=== PATIENT | male | born 1945 | race Hispanic/Latino ===

== ENCOUNTER 2019-12-08 08:45 | Inpatient (IN) | payer MEDICARE, OTHER ==
[2020-01-12 09:54] VITALS: BMI 25.5
[2020-01-12 12:24] LABS: #Eosinphils 0.2 thou/uL (0.0-0.7); #Lymphocytes 2.8 thou/uL (1.20-3.40); #Monocytes 0.8 thou/uL (0.11-0.59); #Neutrophils 5.5 thou/uL (1.40-6.50); %Basophils 0.3 % (0.0-1.0); %Eosinophils 1.8 % (0.0-10.0); %Lymphocytes 29.8 % (21.0-51.0); %Monocytes 8.6 % (0.0-10.0); %Neutrophils 59.6 % (42.0-75.0); Hemoglobin 16.2 g/dL (14.0-18.0); Mean Corpuscular HGB CONC 31.4 g/dL (32.0-36.0); Mean Corpuscular Hemoglobin 27.8 pg (27.0-31.0); Mean Corpuscular Volume 88.6 fL (78.0-98.0); Mean Platelet Volume 10.3 fL (7.4-10.4); Platelet Count 120 thou/uL (130-400); RBC Distribution Width 13.4 % (11.5-14.5); Red Blood Cell (RBC) Count 5.81 mill/uL (4.70-6.10); White Blood Cell (WBC) Count 9.3 thou/uL (4.8-10.8)
[2020-01-12 12:28] LABS: Prothrombin Time 13.1 sec (12.0-14.7)
[2020-01-12 12:45] LABS: Anion Gap 18 mmol/L (10-20); BUN (Urea Nitrogen) 19 mg/dL (8.4-25.7); Calc. Creatinine Clearance 0 mL/min (70-130); Calcium 9.7 mg/dL (7.8-10.44); Carbon Dioxide 22 mmol/L (23-31); Chloride 107 mmol/L (98-107); Estimated GFR-MDRD 57; Glucose 115 mg/dL (83-110); Potassium 3.8 mmol/L (3.5-5.1); Sodium 143 mmol/L (136-145)
[2020-01-12 18:13] LABS: Bacteria/HPF None Seen HPF (None Seen); Bilirubin Negative (Negative); Blood, Urine Negative (Negative); Clarity Clear (Clear); Glucose, Urine (Dipstick) Greater than 1000 mg/dL (Negative); Leukocyte Negative Leu/uL (Negative); Nitrite Negative (Negative); Protein, Urine (Dipstick) 30 mg/dL (Neg-Trace); Squamous Epithelial None Seen HPF (0-3); Urobilinogen Normal mg/dL (Less than 2); WBC/HPF 0-3 HPF (0-3)
[2020-01-12 18:35] LABS: SARS-CoV-2 MS2 Positive; SARS-CoV-2 N Gene Negative; SARS-CoV-2 S Gene Negative; SARS-CoV-2 orf1ab Negative
--- NOTE | 2020-01-16 07:00 | HP ---
HISTORY OF PRESENT ILLNESS: The patient is a 74-year-old male with a 1-year history of progressive pain in the left hip without injury. He describes groin pain radiating in his thigh and towards his knee which is worse with activities. It is now interfering with day-to-day activities including walking, getting dressed, and sleeping. Only partially relieved with use of Meloxican and lifestyle adjustments. PAST MEDICAL HISTORY: The patient has history of hypertension and diabetes. He underwent renal transplant several years ago in [place], [place] with good results. CURRENT MEDICATIONS: Include, 1. Tacrolimus. 2. Low-dose aspirin. 3. Prednisolone 5 mg daily. 4. Glimepiride. 5. Lisinopril. 6. Jardiance. 7. Meloxicam. 8. Pravastatin. 9. Mycophenolate. ALLERGIES: HE HAS NO KNOWN ALLERGIES. FAMILY HISTORY: Otherwise unremarkable. SOCIAL HISTORY: Otherwise unremarkable. REVIEW OF SYSTEMS: Otherwise unremarkable. PHYSICAL EXAMINATION: GENERAL: Reveals a healthy-appearing male. HEENT: Unremarkable. NECK: Supple. CHEST: Clear. HEART: Regular rate and rhythm. ABDOMEN: Soft and nontender. RECTAL: Deferred. GENITAL: Deferred. EXTREMITIES: Pertinent findings in the left hip. Leg lengths are equal. There is tenderness in the anterior hip. There is decreased range of motion and groin pain with internal rotation of the hip. There is a left antalgic gait. Neurovascular exam is intact. Pulses are trace to 1+. There is good capillary refill. DIAGNOSTIC STUDIES: X-rays of the left hip performed at the [facility] on 10/31/2019 show severe DJD with no joint space remaining. There are surgical clips throughout the left pelvis apparently from previous renal transplant. IMPRESSION: 1. Degenerative arthritis, left hip. 2. Status post renal transplant. 3. History of hypertension. 4. History of diabetes. PLAN: Left total hip replacement. The nature of surgery, length of recovery, and potential complications such as infection, loss of motion, incomplete relief, neurovascular injury, thromboembolic phenomena, leg-length discrepancy, possible transfusion, and need for revision have been discussed in detail. Job ID: [id number]
[2020-01-16] MEDS ORDERED: Sodium Chloride 0.9% 100 ML ONE (07:45)
[2020-01-16] MEDS ORDERED: Tranexamic Acid 1,000 MG/10 ML VIAL ONE ×2 (07:45→11:55)
[2020-01-16] MEDS ORDERED: Fentanyl 100 MCG/2 ML VIAL ONE ×4 (08:14→12:13)
[2020-01-16] MEDS ORDERED: Midazolam HCl 2 mg/2 ml Vial ONE ×2 (08:14→08:16)
[2020-01-16] MEDS ORDERED: Acetaminophen 325 MG TAB PO PRN ×2 (08:44→14:56)
[2020-01-16] MEDS ORDERED: Promethazine HCl 25 MG/ML VIAL IM PRN ×2 (08:45→12:06)
[2020-01-16] MEDS ORDERED: Hydrocerin (Eucerin) Cream 120 gm Jar TOP PRN (08:45)
[2020-01-16] MEDS ORDERED: Naloxone HCl 0.4 mg/ml Vial IV PRN (08:45)
[2020-01-16] MEDS ORDERED: Naloxone HCl 0.4 mg/ml Vial IVP PRN (08:45)
[2020-01-16] MEDS ORDERED: Ondansetron PF 4 MG/2 ML Vial IVP PRN (08:45)
[2020-01-16] MEDS ORDERED: diphenhydrAMINE 50 MG/ML VIAL IVP PRN (08:45)
[2020-01-16] MEDS ORDERED: diphenhydrAMINE 50 MG/ML VIAL IM PRN (08:45)
[2020-01-16] MEDS ORDERED: Promethazine HCl 25 MG SUPP PR PRN (08:45)
[2020-01-16] MEDS ORDERED: Zolpidem Tartrate 5 MG TAB PO PRN ×2 (08:45→14:56)
[2020-01-16] MEDS ORDERED: traMADol HCl 50 MG TAB PO PRN ×2 (08:45)
[2020-01-16] MEDS ORDERED: diphenhydrAMINE 25 MG CAP PO PRN ×2 (08:45→14:56)
[2020-01-16] MEDS ORDERED: HYDROcodone/Acetaminophen 5/325 mg Tablet PO PRN ×2 (08:45)
[2020-01-16] MEDS ORDERED: Bupivacaine 0.25% 10 ML VIAL EPIDURAL PRN (08:45)
[2020-01-16] MEDS ORDERED: Bupivacaine/Epinephrine 0.25% 30 ML VIAL ONE (09:53)
[2020-01-16] MEDS ORDERED: Vancomycin 1.5 GRAM/300 ML BAG 1.5 GM/300 ML BAG ONE (09:58)
[2020-01-16] MEDS ORDERED: Glycopyrrolate 0.2 MG/ML 5 ML SYRINGE ONE (10:44)
[2020-01-16] MEDS ORDERED: Rocuronium Bromide 10 MG/ML (10ML VIAL) ONE (10:44)
[2020-01-16] MEDS ORDERED: PHENYLEPHRINE-NS 100 MCG/ML 10 ML SYRINGE ONE (10:44)
[2020-01-16] MEDS ORDERED: EPHEDRINE 25 MG/5 ML SYRINGE ONE (10:44)
[2020-01-16] MEDS ORDERED: Lidocaine 1% PF 5 ML VIAL ONE (10:44)
[2020-01-16] MEDS ORDERED: PROPOFOL 200 MG/20 ML VIAL ONE (10:44)
[2020-01-16] MEDS ORDERED: Lidocaine 1.5% w/Epi 1:200K 30 ML VIAL (Epid Use) ONE (10:44)
[2020-01-16] MEDS ORDERED: Tranexamic Acid 1,000 MG in Sodium Chloride 0.9% 100 ML IVPB SCH ×2 (12:00→14:56)
[2020-01-16] MEDS ORDERED: Promethazine HCl 25 MG/ML VIAL SLOW IVP PRN ×2 (12:06→14:56)
[2020-01-16] MEDS ORDERED: Ondansetron HCl/PF 4 MG/2 ML Vial IVP PRN (12:06)
--- NOTE | 2020-01-16 12:58 | RAD ---
Left hip 2 views HISTORY: Arthritis. Replacement. FINDINGS: Metallic hip prosthesis in place. Alignment is anatomic. No perihardware lucency. Soft tissue gas from recent surgery. IMPRESSION : Left hip prosthesis is in good radiographic position.
[2020-01-16] MEDS ORDERED: Ondansetron PF 4 MG/2 ML Vial ONE (13:28)
[2020-01-16] MEDS ORDERED: Fentanyl 100 MCG/2 ML VIAL SLOW IVP PRN ×4 (14:56→17:15)
[2020-01-16] MEDS ORDERED: HYDROcodone/Acetaminophen 10/325 mg Tablet PO PRN ×3 (14:56→17:12)
[2020-01-16] MEDS ORDERED: Empagliflozin 10 MG TAB PO SCH (17:00)
[2020-01-16] MEDS ORDERED: predniSONE 5 MG TAB PO SCH (17:15)
[2020-01-16] MEDS: CEFAZOLIN 2 GM in Premix Bag 1 BAG IVPB SCH (17:16)
[2020-01-16] MEDS ORDERED: Dextrose 50% Abboject 50 ML SYRINGE SLOW IVP PRN (17:21)
[2020-01-16] MEDS ORDERED: Insulin Regular 300 UNITS/3 ML VIAL SC PRN (17:21)
[2020-01-16] MEDS ORDERED: Dextrose 5% in Water 1,000 ML IV PRN (17:21)
--- NOTE | 2020-01-16 17:23 | PDOC.HOSPP ---
- Subjective Encounter Date: 01/16/20 Encounter Time: 17:22 Subjective: Patient seen and examined for med mngt. No CP/SOB. Pain controlled. No new complaints. - Objective Vital Signs & Weight: Vital Signs (12 hours) Temp Pulse Resp BP Pulse Ox 01/16/20 13:45 97.5 F L 75 16 153/77 H 95 Weight Weight 183 lb Result Diagrams: 01/17/20 05:48 01/12/20 11:13 Additional Labs: Accuchecks 01/16/20 01/16/20 15:11 08:22 POC Glucose 173 H 146 H EKG Reviewed by me: Yes (SR) Hospitalist ROS - Review of Systems Respiratory: denies: cough, dry, shortness of breath, hemoptysis, SOB with excertion, pleuritic pain, sputum, wheezing, other Cardiovascular: denies: chest pain, palpitations, orthopnea, paroxysmal noc. dyspnea, edema, light headedness, other - Medication Medications: Active Medications Generic Name Dose Route Start Last Admin Trade Name Freq PRN Reason Stop Dose Admin Cefazolin Sodium/Dextrose 2 gm 50 mls @ 100 mls/hr 01/16/20 17:00 01/16/20 17 :16 / Device IVPB 01/17/20 01:29 50 mls 0100,[id number],1700 JUAN RAMON Administration - Exam General Appearance: NAD Heart: RRR, no rubs Respiratory: no wheezes, no ronchi Gastrointestinal: non-tender, non-distended, normal bowel sounds Extremities: no cyanosis, no clubbing Neurological: no new deficit Hosp A/P - Plan DVT proph w/SCDs HTN DM2 Glaucoma h/o Renal transplant 2004 CKD 3 PLAN: Cont Lisinopril Cont Jardiance/Glimepiride Cont Prednisone/Mycophenolate Add sliding scale Cont other meds as above
--- NOTE | 2020-01-16 19:17 | OP ---
DATE OF PROCEDURE: 01/16/2020 SET UP OPERATOR TOOL: Jesus Warner PA-C ANESTHESIA: General plus epidural. PREOPERATIVE DIAGNOSIS: Degenerative arthritis, left hip. POSTOPERATIVE DIAGNOSIS: Degenerative arthritis, left hip. PROCEDURE PERFORMED: Left total hip replacement with uncemented [place] Tritanium outer shell acetabular component, 56 mm with X3 polyethylene insert, and uncemented [place] Accolade II femoral stem, size 4 with 132-degree neck angle and 36-mm standard neck length, delta ceramic femoral head. DESCRIPTION OF PROCEDURE: After satisfactory anesthesia was induced in supine position, sequential compression device was placed on the operative leg throughout the procedure. The patient was placed in lateral decubitus position. This position was held with hip positioning device. The patient was then prepped in routine sterile fashion. The hip was approached through a lateral curvilinear incisions over the greater trochanter, carried down through the subcutaneous tissues and bleeding points were controlled with the Bovie cautery. IT band and gluteal fascia were split in line with the skin incision. A direct lateral approach to the hip joint was accomplished by dividing the anterior third of the gluteus medius and minimus tendons with the Bovie cautery and reflecting this as a single flap anteriorly and medially along with the vastus lateralis. Anterior capsulectomy was performed. The hip was dislocated anteriorly. There was marked degenerative arthritis of the hip with the large areas of exposed bone. Femoral neck was osteotomized with an oscillating saw using a trial prosthesis as a guide. The acetabulum was exposed and cleaned of all soft tissue debris and rim osteophytes. The acetabulum was reamed down to bleeding subchondral bone to a total of 55 mm. It was felt that the 56-mm Tritanium outer shell could be placed in a press-fit fashion. The permanent outer shell was hammered in position. There was good fit and stability of the component and the permanent X3 polyethylene liner was snapped into place. The proximal femur was then exposed and opened with a box osteotome and then rasped in sequence to accept a #4 Accolade II femoral rasp. The 132-degree neck angle trunnion was placed on the rasp and trial reduction with a standard neck length and 36-mm head gave appropriate size, fit, and stability. The hip was again dislocated. The trial components were removed. The permanent #4 Accolade II femoral stem was then hammered in position. There was good fit and stability of the components. The permanent 36-mm standard neck length delta ceramic head was then placed on the trunnion and the hip again reduced and found to be stable. The wound was thoroughly irrigated. The abductors were repaired with interrupted #2 Vicryl. IT band and gluteal fascia were closed with interrupted #2 Vicryl and a running #2 Quill. Subcutaneous tissues were closed with running 0 Quill suture and the skin closed with a running subcuticular 3-0 Monoderm and Surgicel skin adhesive. Sterile dressing was applied. The patient turned to supine position and a pillow placed between his legs. Sequential compression devices were applied to the operated leg and he was awakened and taken to the recovery room in stable condition. There were no apparent intraoperative complications. ESTIMATED BLOOD LOSS: 200 mL. Job ID: [id number]
[2020-01-16] MEDS: Sodium Chloride 0.9% 1,000 ML IV SCH (19:32)
[2020-01-16] MEDS ORDERED: Atorvastatin Calcium 20 MG TAB ONE (20:23)
[2020-01-16] MEDS ORDERED: Vancomycin 1.5 GRAM/300 ML BAG 1.5 GM in Premix Bag 1 BAG IVPB SCH (21:00)
[2020-01-16] MEDS ORDERED: Lisinopril 10 MG TAB PO SCH (21:00)
[2020-01-16] MEDS: Aspirin 81 mg Enteric Coated Tablet PO SCH (21:44)
[2020-01-16] MEDS: Mycophenolate 250 MG CAP PO SCH (21:44)
[2020-01-16] MEDS: TACROLIMUS 0.5 MG/ML PO SCH (21:45)
[2020-01-16] MEDS: PRAVASTATIN 80 MG PO SCH (21:45)
[2020-01-17] MEDS: CEFAZOLIN 2 GM in Premix Bag 1 BAG IVPB SCH (01:24)
[2020-01-17] MEDS: Sodium Chloride 0.9% 1,000 ML IV SCH ×3 (01:27→20:15)
[2020-01-17] MEDS: HYDROcodone/Acetaminophen 10/325 mg Tablet PO PRN ×2 (04:22→09:22)
[2020-01-17] MEDS: fentaNYL Citrate/PF 500 MCG, Bupivacaine 10 ML in Sodium Chloride 0.9% 80 ML EPIDURAL SCH ×2 (04:22→20:00)
[2020-01-17 06:11] LABS: Hemoglobin 13.5 g/dL (14.0-18.0); Mean Corpuscular HGB CONC 31.6 g/dL (32.0-36.0); Mean Corpuscular Volume 88.6 fL (78.0-98.0); Mean Platelet Volume 10.2 fL (7.4-10.4); Platelet Count 96 thou/uL (130-400); RBC Distribution Width 13.1 % (11.5-14.5); Red Blood Cell (RBC) Count 4.82 mill/uL (4.70-6.10); White Blood Cell (WBC) Count 10.5 thou/uL (4.8-10.8)
[2020-01-17] MEDS: traMADol HCl 50 MG TAB PO PRN (06:44)
[2020-01-17] MEDS: Ondansetron PF 4 MG/2 ML Vial IVP PRN (06:44)
[2020-01-17] MEDS: Glimepiride 4 MG TAB PO SCH ×2 (07:05→16:30)
[2020-01-17] MEDS: Multivitamin W/ Minerals 1 TAB PO SCH (09:21)
[2020-01-17] MEDS: Aspirin 81 mg Enteric Coated Tablet PO SCH ×2 (09:21→20:20)
[2020-01-17] MEDS: Mycophenolate 250 MG CAP PO SCH ×2 (09:21→20:20)
[2020-01-17] MEDS: Tacrolimus 0.5 MG CAP PO SCH (09:21)
[2020-01-17] MEDS: predniSONE 5 MG TAB PO SCH (09:22)
[2020-01-17] MEDS: Empagliflozin 10 MG TAB PO SCH (09:22)
[2020-01-17] MEDS: Senokot S 8.6-50 MG TAB PO SCH ×2 (09:22→20:21)
[2020-01-17] MEDS: Ferrous Gluconate 324 MG TAB PO SCH ×2 (09:26→20:21)
[2020-01-17] MEDS: Insulin Regular 300 UNITS/3 ML VIAL SC PRN ×2 (12:09→16:30)
--- NOTE | 2020-01-17 15:35 | PDOC.HOSPP ---
- Subjective Encounter Date: 01/17/20 Encounter Time: 14:00 Subjective: Patient seen and examined for med mngt. Intermittent nausea. No other complaints. No overnight events - Objective Vital Signs & Weight: Vital Signs (12 hours) Temp Pulse Resp BP Pulse Ox 01/17/20 11:00 98.3 F 88 22 H 108/65 94 L 01/17/20 09:22 94 L 01/17/20 07:36 98.6 F 89 16 126/69 94 L 01/17/20 03:51 99.2 F 97 16 134/70 95 Weight Admit Weight 183 lb Weight 183 lb I&O: 01/16/20 01/17/20 01/18/20 06:59 06:59 06:59 Intake Total 1820 Output Total 1600 Balance 220 Result Diagrams: 01/17/20 05:48 01/12/20 11:13 Additional Labs: Accuchecks 01/17/20 01/17/20 01/16/20 10:33 05:25 20:16 POC Glucose 165 H 117 H 124 H 01/16/20 15:11 POC Glucose 173 H Hospitalist ROS - Review of Systems Respiratory: denies: cough, dry, shortness of breath, hemoptysis, SOB with excertion, pleuritic pain, sputum, wheezing, other Cardiovascular: denies: chest pain, palpitations, orthopnea, paroxysmal noc. dyspnea, edema, light headedness, other - Medication Medications: Active Medications Generic Name Dose Route Start Last Admin Trade Name Freq PRN Reason Stop Dose Admin Hydrocodone Bitart/Acetaminophen 2 tab 01/16/20 17:12 01/17/20 09:22 [place]n 10/325 PO 2 tab Q4H PRN Administration Severe Pain (7-10) Aspirin 81 mg 01/16/20 21:00 01/17/20 09:21 Ecotrin PO 81 mg BID JUAN RAMON Administration Ferrous Gluconate 324 mg 01/17/20 09:00 01/17/20 09:26 Fergon PO Not Given BID JUAN RAMON Glimepiride 4 mg 01/17/20 07:30 01/17/20 07:05 Amaryl PO 4 mg BID-AC JUAN RAMON Administration Fentanyl Citrate 500 mcg/ 100 mls @ 0 mls/hr 01/16/20 08:45 01/17/20 04:22 Bupivacaine HCl 10 ml/ Sodium EPIDURAL 100 mls Chloride INF JUAN RAMON Administration As Directed Sodium Chloride 1,000 mls @ 100 mls/hr 01/16/20 14:56 01/17/20 10:19 Normal Saline 0.9% IV Not Given .Q10H JUAN RAMON Insulin Human Regular 0 units 01/16/20 17:21 01/17/20 12:09 Humulin R SC 2 unit .MILD SLIDING SCALE PRN Administration Mild Correctional Scale Iron/Minerals/Multivitamins 1 tab 01/17/20 09:00 01/17/20 09:21 Theragran M PO 1 tab DAILY JUAN RAMON Administration Lisinopril 10 mg 01/16/20 21:00 01/16/20 21:44 Zestril PO 10 mg HS JUAN RAMON Administration Miscellaneous Medication 10 mg 01/17/20 09:00 01/17/20 09:22 Jardiance PO 10 mg DAILY JUAN RAMON Administration Mycophenolate Mofetil 500 mg 01/16/20 21:00 01/17/20 09:21 Cellcept PO 500 mg BID JUAN RAMON Administration Ondansetron HCl 4 mg 01/16/20 14:56 01/17/20 06:44 Zofran IVP 4 mg Q6H PRN Administration Nausea/Vomiting Pravastatin 80 Mg 1 each 01/16/20 21:00 01/16/20 21:45 PO 1 each HS JUAN RAMON Administration Tacrolimus 0.5 Mg/Ml 0 each 01/16/20 21:00 01/16/20 21:45 Oral Suspension PO 1 each HS JUAN RAMON Administration Prednisone 5 mg 01/17/20 09:00 01/17/20 09:22 Prednisone PO 5 mg DAILY JUAN RAMON Administration Promethazine HCl 12.5 mg 01/16/20 08:45 01/17/20 10:43 Phenergan IM 12.5 mg Q4H PRN Administration Nausea Senna/Docusate Sodium 2 tab 01/17/20 09:00 01/17/20 09:22 Senokot S PO 2 tab BID JUAN RAMON Administration Sodium Chloride 10 ml 01/16/20 09:00 01/17/20 09:26 Flush - Normal Saline IVF 10 ml Q12HR JUAN RAMON Administration Tacrolimus 0.5 mg 01/17/20 09:00 01/17/20 09:21 Prograf PO 0.5 mg QAM JUAN RAMON Administration Tramadol HCl 100 mg 01/16/20 14:56 01/17/20 06:44 Ultram PO 100 mg Q6H PRN Administration Moderate Pain (4-6) - Exam General Appearance: NAD Neck: supple, no JVD Heart: RRR, no gallops Respiratory: CTAB, no rales Gastrointestinal: soft, non-distended Extremities: no cyanosis, no clubbing Neurological: no new deficit Hosp A/P - Plan DVT proph w/SCDs HTN DM2 Glaucoma h/o Renal transplant 2004 CKD 3 Thrombocytopenia PLAN: Cont Lisinopril - hold for low BP Cont Glimepiride Cont Prednisone/Mycophenolate Cont sliding scale Monitor Platelets AM labs Cont other meds as above Orthostatic vitals in AM
[2020-01-17] MEDS ORDERED: Atorvastatin Calcium 20 MG TAB ONE (19:49)
[2020-01-17] MEDS: Meclizine HCl 25 MG TAB PO PRN (20:20)
[2020-01-17] MEDS: Lisinopril 10 MG TAB PO SCH (20:23)
[2020-01-17] MEDS: TACROLIMUS 0.5 MG/ML PO SCH (20:23)
[2020-01-17] MEDS: PRAVASTATIN 80 MG PO SCH (20:24)
[2020-01-18] MEDS: HYDROcodone/Acetaminophen 10/325 mg Tablet PO PRN ×3 (04:14→21:12)
[2020-01-18 06:01] LABS: Hemoglobin 13.7 g/dL (14.0-18.0); Mean Corpuscular HGB CONC 31.9 g/dL (32.0-36.0); Mean Corpuscular Hemoglobin 28.5 pg (27.0-31.0); Mean Corpuscular Volume 89.4 fL (78.0-98.0); Mean Platelet Volume 10.2 fL (7.4-10.4); Platelet Count 100 thou/uL (130-400); RBC Distribution Width 13.2 % (11.5-14.5); Red Blood Cell (RBC) Count 4.81 mill/uL (4.70-6.10); White Blood Cell (WBC) Count 13.2 thou/uL (4.8-10.8)
[2020-01-18 06:02] LABS: Band 11 % (5-11); Eosinophils 1 % (0-10); Lymphocytes 12 % (21-51); MDiff Complete? YES; Monocytes 10 % (0-10); Neutrophil 66 % (42-75); Platelet Morphology Comment Appears Decreased
[2020-01-18 06:10] LABS: Anion Gap 17 mmol/L (10-20); BUN (Urea Nitrogen) 24 mg/dL (8.4-25.7); Calc. Creatinine Clearance 57 mL/min (70-130); Calcium 8.8 mg/dL (7.8-10.44); Carbon Dioxide 19 mmol/L (23-31); Chloride 103 mmol/L (98-107); Estimated GFR-MDRD 53; Glucose 121 mg/dL (83-110); Magnesium 2.2 mg/dL (1.6-2.6); Potassium 4.2 mmol/L (3.5-5.1); Sodium 135 mmol/L (136-145)
[2020-01-18] MEDS: Sodium Chloride 0.9% 1,000 ML IV SCH ×2 (06:45→18:14)
[2020-01-18] MEDS: Glimepiride 4 MG TAB PO SCH ×2 (07:21→16:59)
[2020-01-18] MEDS: Tacrolimus 0.5 MG CAP PO SCH (09:15)
[2020-01-18] MEDS: Empagliflozin 10 MG TAB PO SCH (09:16)
[2020-01-18] MEDS: Ondansetron PF 4 MG/2 ML Vial IVP PRN (09:18)
[2020-01-18] MEDS: Senokot S 8.6-50 MG TAB PO SCH ×2 (09:20→21:11)
[2020-01-18] MEDS: predniSONE 5 MG TAB PO SCH (09:20)
[2020-01-18] MEDS: Mycophenolate 250 MG CAP PO SCH ×2 (09:20→21:11)
[2020-01-18] MEDS: Ferrous Gluconate 324 MG TAB PO SCH ×2 (09:21→21:11)
[2020-01-18] MEDS: Aspirin 81 mg Enteric Coated Tablet PO SCH ×2 (09:21→21:10)
[2020-01-18] MEDS: Multivitamin W/ Minerals 1 TAB PO SCH ×2 (09:21→09:26)
[2020-01-18] MEDS: Meclizine HCl 25 MG TAB PO PRN (10:54)
[2020-01-18] MEDS: traMADol HCl 50 MG TAB PO PRN (13:52)
--- NOTE | 2020-01-18 16:24 | PRG ---
DATE OF SERVICE: 01/18/2020 SUBJECTIVE: Parish is a 74-year-old male, who is postop day 2 from left total hip arthroplasty. He has failed to meet milestones for ambulation, independence, getting back and forth to the bathroom. Therefore, he is not stable for discharge today. OBJECTIVE: VITAL SIGNS: Temperature 97.9, pulse 97, respiratory rate 16, and blood pressure 97/62. GENERAL: He is alert and oriented to person, place, time, and situation. Responsive and appropriate with examiner. Converses easily. EXTREMITIES: Visual inspection of left hip demonstrates him to have a clean dry dressing. No strike-through. No malrotation or shortening and he is neurovascularly intact in the left lower extremity. LABORATORY DATA: Hemoglobin and hematocrit of 13 and 43. IMPRESSION: This is a 74-year-old male postop day 2 left total hip arthroplasty, but with failure to reach independence as far as in and out of bed, back and forth to the bathroom. PLAN: Continue current therapy. I will go ahead and turn in a consult for skilled versus inpatient rehabilitation placement. Job ID: [id number]
[2020-01-18] MEDS ORDERED: Atorvastatin Calcium 20 MG TAB ONE (19:48)
[2020-01-18] MEDS: Lisinopril 10 MG TAB PO SCH (21:11)
[2020-01-18] MEDS: PRAVASTATIN 80 MG PO SCH (21:13)
[2020-01-18] MEDS: TACROLIMUS 0.5 MG/ML PO SCH (21:13)
[2020-01-19] MEDS: Sodium Chloride 0.9% 1,000 ML IV SCH ×3 (02:20→23:44)
[2020-01-19] MEDS: HYDROcodone/Acetaminophen 10/325 mg Tablet PO PRN ×3 (06:25→15:53)
[2020-01-19] MEDS: Glimepiride 4 MG TAB PO SCH ×2 (06:25→15:56)
--- NOTE | 2020-01-19 08:01 | PDOC.HOSPP ---
- Subjective Encounter Date: 01/18/20 Encounter Time: 15:00 Subjective: Patient seen and examined for med mngt. No CP. No new complaints. No overnight events - Objective Vital Signs & Weight: Vital Signs (12 hours) Temp Pulse Resp BP BP Pulse Ox 01/19/20 03:21 97.7 F 81 14 136/66 95 01/18/20 21:11 148/71 H Weight Admit Weight 183 lb Weight 183 lb I&O: 01/18/20 01/19/20 01/20/20 06:59 06:59 06:59 Intake Total 1830 490 Output Total 1500 1700 Balance 330 -1210 Result Diagrams: 01/18/20 05:21 01/18/20 05:21 Additional Labs: Accuchecks 01/19/20 01/18/20 01/18/20 06:26 21:21 15:23 POC Glucose 133 H 160 H 167 H 01/18/20 11:38 POC Glucose 184 H Hospitalist ROS - Review of Systems Respiratory: denies: cough, dry, shortness of breath, hemoptysis, SOB with excertion, pleuritic pain, sputum, wheezing, other Cardiovascular: denies: chest pain, palpitations, orthopnea, paroxysmal noc. dyspnea, edema, light headedness, other Gastrointestinal: denies: nausea, vomiting, abdominal pain, diarrhea, constipation, melena, hematochezia, other - Medication Medications: Active Medications Generic Name Dose Route Start Last Admin Trade Name Freq PRN Reason Stop Dose Admin Hydrocodone Bitart/Acetaminophen 2 tab 01/16/20 17:12 01/19/20 06:25 [place] 10/325 PO 2 tab Q4H PRN Administration Moderate to Severe Pain (5-10) Aspirin 81 mg 01/16/20 21:00 01/18/20 21:10 Ecotrin PO 81 mg BID JUAN RAMON Administration Ferrous Gluconate 324 mg 01/17/20 09:00 01/18/20 21:11 Fergon PO Not Given BID JUAN RAMON Glimepiride 4 mg 01/17/20 07:30 01/19/20 06:25 Amaryl PO 4 mg BID-AC JUAN RAMON Administration Sodium Chloride 1,000 mls @ 100 mls/hr 01/16/20 14:56 01/19/20 02:20 Normal Saline 0.9% IV Not Given .Q10H JUAN RAMON Insulin Human Regular 0 units 01/16/20 17:21 01/17/20 16:30 Humulin R SC 2 unit .MILD SLIDING SCALE PRN Administration Mild Correctional Scale Iron/Minerals/Multivitamins 1 tab 01/17/20 09:00 01/18/20 09:26 Theragran M PO 1 tab DAILY JUAN RAMON Administration Lisinopril 10 mg 01/17/20 21:00 01/18/20 21:11 Zestril PO 10 mg HS JUAN RAMON Administration Meclizine HCl 12.5 mg 01/17/20 15:49 01/18/20 10:54 Antivert PO 12.5 mg Q8H PRN Administration Dizziness Miscellaneous Medication 10 mg 01/17/20 09:00 01/18/20 09:16 Jardiance PO 10 mg DAILY JUAN RAMON Administration Mycophenolate Mofetil 500 mg 01/16/20 21:00 01/18/20 21:11 Cellcept PO 500 mg BID JUAN RAMON Administration Ondansetron HCl 4 mg 01/16/20 14:56 01/18/20 09:18 Zofran IVP 4 mg Q6H PRN Administration Nausea/Vomiting Pravastatin 80 Mg 1 each 01/16/20 21:00 01/18/20 21:13 PO 1 each HS JUAN RAMON Administration Tacrolimus 0.5 Mg/Ml 0 each 01/16/20 21:00 01/18/20 21:13 Oral Suspension PO 1 each HS JUAN RAMON Administration Prednisone 5 mg 01/17/20 09:00 01/18/20 09:20 Prednisone PO 5 mg DAILY JUAN RAMON Administration Promethazine HCl 12.5 mg 01/16/20 08:45 01/17/20 10:43 Phenergan IM 12.5 mg Q4H PRN Administration Nausea Senna/Docusate Sodium 2 tab 01/17/20 09:00 01/18/20 21:11 Senokot S PO 2 tab BID JUAN RAMON Administration Sodium Chloride 10 ml 01/16/20 09:00 01/18/20 21:15 Flush - Normal Saline IVF 10 ml Q12HR JUAN RAMON Administration Tacrolimus 0.5 mg 01/17/20 09:00 01/18/20 09:15 Prograf PO 0.5 mg QAM JUAN RAMON Administration Tramadol HCl 100 mg 01/16/20 14:56 01/18/20 13:52 Ultram PO 100 mg Q6H PRN Administration Moderate Pain (4-6) - Exam General Appearance: NAD Heart: RRR, no gallops Respiratory: no wheezes, no ronchi Gastrointestinal: soft, non-tender, non-distended Extremities: no cyanosis Neurological: no new deficit Hosp A/P - Plan DVT proph w/SCDs DM2 HTN Glaucoma h/o Renal transplant 2004 CKD 3 Thrombocytopenia PLAN: Cont Lisinopril/Glimepiride Cont Prednisone Cont Mycophenolate Cont Insulin sliding scale Cont other meds as above
[2020-01-19] MEDS: Multivitamin W/ Minerals 1 TAB PO SCH (09:06)
[2020-01-19] MEDS: Mycophenolate 250 MG CAP PO SCH ×2 (09:06→20:24)
[2020-01-19] MEDS: Aspirin 81 mg Enteric Coated Tablet PO SCH ×2 (09:06→20:24)
[2020-01-19] MEDS: Senokot S 8.6-50 MG TAB PO SCH ×2 (09:06→20:23)
[2020-01-19] MEDS: predniSONE 5 MG TAB PO SCH (09:07)
[2020-01-19] MEDS: Ferrous Gluconate 324 MG TAB PO SCH ×2 (09:07→20:37)
[2020-01-19] MEDS: Empagliflozin 10 MG TAB PO SCH (09:12)
[2020-01-19] MEDS: Tacrolimus 0.5 MG CAP PO SCH (09:20)
[2020-01-19] MEDS: Lisinopril 10 MG TAB PO SCH (20:24)
[2020-01-19] MEDS: TACROLIMUS 0.5 MG/ML PO SCH (20:26)
[2020-01-19] MEDS: PRAVASTATIN 80 MG PO SCH (20:26)
[2020-01-20] MEDS: Glimepiride 4 MG TAB PO SCH ×2 (06:40→17:28)
[2020-01-20] MEDS: Sodium Chloride 0.9% 1,000 ML IV SCH (08:36)
[2020-01-20] MEDS: Senokot S 8.6-50 MG TAB PO SCH (08:37)
[2020-01-20] MEDS: Ferrous Gluconate 324 MG TAB PO SCH (08:38)
[2020-01-20] MEDS: predniSONE 5 MG TAB PO SCH (08:38)
[2020-01-20] MEDS: Multivitamin W/ Minerals 1 TAB PO SCH (08:38)
[2020-01-20] MEDS: Aspirin 81 mg Enteric Coated Tablet PO SCH (08:39)
[2020-01-20] MEDS: Mycophenolate 250 MG CAP PO SCH (08:39)
[2020-01-20] MEDS: Tacrolimus 0.5 MG CAP PO SCH (08:39)
[2020-01-20] MEDS: Empagliflozin 10 MG TAB PO SCH (08:39)
[2020-01-20] MEDS: HYDROcodone/Acetaminophen 10/325 mg Tablet PO PRN (10:58)
[2020-01-20 16:07] VITALS: BP 134/78; TEMP 97.8
[2020-01-20] MEDS ORDERED: Polyethylene Glycol 3350 17 GM Packet PO PRN (17:55)
--- NOTE | 2020-01-20 18:13 | PDOC.HOSPP ---
- Subjective Encounter Date: 01/20/20 Encounter Time: 14:30 Subjective: Patient seen and examined for med mngt. No CP/SOB or palpitations. No new complaints. No overnight events - Objective Vital Signs & Weight: Vital Signs (12 hours) Temp Pulse Resp BP Pulse Ox 01/20/20 15:54 97.8 F 77 18 134/78 97 01/20/20 11:33 98.2 F 96 16 135/73 95 01/20/20 07:51 98.3 F 95 18 155/72 H 93 L Weight Admit Weight 183 lb Weight 183 lb I&O: 01/19/20 01/20/20 01/21/20 06:59 06:59 06:59 Intake Total 490 2400 Output Total 1700 900 Balance -1210 1500 Result Diagrams: 01/18/20 05:21 01/18/20 05:21 Additional Labs: Accuchecks 01/20/20 01/20/20 01/20/20 15:55 11:39 05:29 POC Glucose 165 H 128 H 146 H 01/19/20 21:02 POC Glucose 186 H Hospitalist ROS - Review of Systems Respiratory: denies: cough, dry, shortness of breath, hemoptysis, SOB with excertion, pleuritic pain, sputum, wheezing, other Cardiovascular: denies: chest pain, palpitations, orthopnea, paroxysmal noc. dyspnea, edema, light headedness, other - Medication Medications: Active Medications Generic Name Dose Route Start Last Admin Trade Name Freq PRN Reason Stop Dose Admin Hydrocodone Bitart/Acetaminophen 1 tab 01/16/20 17:12 01/19/20 20:24 [place] 10/325 PO 1 tab Q4H PRN Administration Mild-Moderate Pain (2-4) Hydrocodone Bitart/Acetaminophen 2 tab 01/16/20 17:12 01/20/20 10:58 [place] 10/325 PO 2 tab Q4H PRN Administration Moderate to Severe Pain (5-10) Aspirin 81 mg 01/16/20 21:00 01/20/20 08:39 Ecotrin PO 81 mg BID JUAN RAMON Administration Ferrous Gluconate 324 mg 01/17/20 09:00 01/20/20 08:38 Fergon PO 324 mg BID JUAN RAMON Administration Glimepiride 4 mg 01/17/20 07:30 01/20/20 17:28 Amaryl PO 4 mg BID-AC JUAN RAMON Administration Insulin Human Regular 0 units 01/16/20 17:21 01/17/20 16:30 Humulin R SC 2 unit .MILD SLIDING SCALE PRN Administration Mild Correctional Scale Iron/Minerals/Multivitamins 1 tab 01/17/20 09:00 01/20/20 08:38 Theragran M PO 1 tab DAILY JUAN RAMON Administration Lisinopril 10 mg 01/17/20 21:00 01/19/20 20:24 Zestril PO 10 mg HS JUAN RAMON Administration Meclizine HCl 12.5 mg 01/17/20 15:49 01/18/20 10:54 Antivert PO 12.5 mg Q8H PRN Administration Dizziness Miscellaneous Medication 10 mg 01/17/20 09:00 01/20/20 08:39 Jardiance PO 10 mg DAILY JUAN RAMON Administration Mycophenolate Mofetil 500 mg 01/16/20 21:00 01/20/20 08:39 Cellcept PO 500 mg BID JUAN RAMON Administration Ondansetron HCl 4 mg 01/16/20 14:56 01/18/20 09:18 Zofran IVP 4 mg Q6H PRN Administration Nausea/Vomiting Pravastatin 80 Mg 1 each 01/16/20 21:00 01/19/20 20:26 PO 1 each HS JUAN RAMON Administration Tacrolimus 0.5 Mg/Ml 0 each 01/16/20 21:00 01/19/20 20:26 Oral Suspension PO 1 each HS JUAN RAMON Administration Prednisone 5 mg 01/17/20 09:00 01/20/20 08:38 Prednisone PO 5 mg DAILY JUAN RAMON Administration Promethazine HCl 12.5 mg 01/16/20 08:45 01/17/20 10:43 Phenergan IM 12.5 mg Q4H PRN Administration Nausea Senna/Docusate Sodium 2 tab 01/17/20 09:00 01/20/20 08:37 Senokot S PO 2 tab BID JUAN RAMON Administration Sodium Chloride 10 ml 01/16/20 09:00 01/20/20 08:39 Flush - Normal Saline IVF 10 ml Q12HR JUAN RAMON Administration Tacrolimus 0.5 mg 01/17/20 09:00 01/20/20 08:39 Prograf PO 0.5 mg QAM JUAN RAMON Administration Tramadol HCl 100 mg 01/16/20 14:56 01/18/20 13:52 Ultram PO 100 mg Q6H PRN Administration Moderate Pain (4-6) - Exam General Appearance: NAD Heart: RRR, no gallops Respiratory: CTAB, no rales Gastrointestinal: soft, non-tender, non-distended Extremities: no cyanosis, no clubbing, no edema Neurological: no new deficit Hosp A/P - Plan DVT proph w/SCDs DM2 HTN Glaucoma h/o Renal transplant 2004 CKD 3 Thrombocytopenia - prob chronic PLAN: Cont Lisinopril Cont Glimepiride and Insulin sliding scale Cont Prednisone and Mycophenolate Add Miralax Cont other meds as above
--- NOTE | 2020-01-24 13:02 | DIS ---
DATE OF ADMISSION: 01/16/2020 DATE OF DISCHARGE: 01/20/2020 This is Jesus Warner PA-C dictating a report for Norman Rosales MD. PREOPERATIVE DIAGNOSIS: Left hip osteoarthritis/degenerative joint disease. POSTOPERATIVE DIAGNOSIS: Left hip osteoarthritis/degenerative joint disease. PROCEDURE: The patient underwent a left hip replacement. HOSPITAL STAY: The first few days are a little bit arduous for patient as his epidural and just anesthesia caused quite a bit of dizziness and nausea and vomiting. By the third day, he was moving a little bit, was still struggling with some pain and mobility, but the dizziness and nausea had resolved. He diligently worked with Physical Therapy and was progressing, but was a little bit slow. Therefore, we chose a skilled facility for patient. The patient had no other hospital complications. DISCHARGE CONDITION: Good/stable. DISPOSITION: To a swing bed facility for further rehabilitative work. DISCHARGE MEDICATIONS: Given with usage instructions. Follow up would be in 2 to 4 weeks or sooner if there are problems or concerns. Job ID: [id number]
== END 2020-01-20 18:45 | disposition swing bed (61) | DRG 470 ==
LOC: SURG A 01-16 06:50 → SJJU 01-16 14:24
PROVIDERS: ADMIT Orthopaedic Surgery; ATTEND Orthopaedic Surgery
PROC: 0SRB04A Replacement of Left Hip Joint with Ceramic on Polyethylene Synthetic Substitute, Uncemented, Open Approach (ICD-10-PCS; principal; 2020-01-16)
DX: M16.12 Unilateral primary osteoarthritis, left hip (principal); Z94.0 Kidney transplant status; Z11.59 Encounter for screening for other viral diseases; Z20.828 Contact with and (suspected) exposure to other viral communicable diseases; N18.3 Chronic kidney disease, stage 3 (moderate); I12.9 Hypertensive chronic kidney disease with stage 1 through stage 4 chronic kidney disease, or unspecified chronic kidney disease; E11.22 Type 2 diabetes mellitus with diabetic chronic kidney disease; H40.9 Unspecified glaucoma; D69.6 Thrombocytopenia, unspecified; Z79.899 Other long term (current) drug therapy; Z79.84 Long term (current) use of oral hypoglycemic drugs
CPT/HCPCS: 36415; 36416; 80048; 81001; 83735; 85007; 85025; 85027; 85610; 86850; 86900; 86901; 87081; 87635; J0690; J1815; J2001; J2250; J2405; J2550; J2704; J3010; J3370; J3490; J7507; J7512; J7517; U0003

== ENCOUNTER 2020-01-12 05:55 | Outpatient (CLI) | payer MEDICARE, OTHER ==
--- NOTE | 2020-01-12 17:37 | EKG ---
Test Reason : Blood Pressure : / mmHG Vent. Rate : 068 BPM Atrial Rate : 068 BPM P-R Int : 164 ms QRS Dur : 084 ms QT Int : 408 ms P-R-T Axes : 046 012 005 degrees QTc Int : 433 ms Normal sinus rhythm Normal ECG No previous ECGs available Confirmed by JACQUELINE FRANCES, DR. Robledo ([id number]) on 01/12/2020 5:37:06 PM Referred By: CARMELITA Confirmed By:DR. Venkat PHILLIPS MD
== END 2020-01-12 05:56 | disposition home or self-care (01) ==
LOC: LABBT 05:55
PROVIDERS: ATTEND Orthopaedic Surgery
DX: Z01.818 Encounter for other preprocedural examination (principal); Z11.59 Encounter for screening for other viral diseases; M16.12 Unilateral primary osteoarthritis, left hip
CPT/HCPCS: 93005; 93010

== ENCOUNTER 2022-11-20 09:47 | Outpatient (CLI) | payer MEDICARE ==
[2022-11-20] MEDS ORDERED: Magnevist 469MG/ML 20 ML VIAL ONE (11:24)
== END 2022-11-20 09:48 | disposition home or self-care (01) ==
LOC: TBSIIMAG 09:47
PROVIDERS: ATTEND Urology
DX: R97.20 Elevated prostate specific antigen [PSA] (principal); Z94.0 Kidney transplant status
CPT/HCPCS: 72197; A9579

== ENCOUNTER 2022-12-19 08:46 | Outpatient (CLI) | payer MEDICARE ==
[2022-12-19] MEDS ORDERED: Iopamidol 370 76% 100 ML VIAL ONE (09:57)
== END 2022-12-19 08:47 | disposition home or self-care (01) ==
LOC: CT 08:46
PROVIDERS: ATTEND Urology
DX: Z48.22 Encounter for aftercare following kidney transplant (principal); R31.29 Other microscopic hematuria; N28.1 Cyst of kidney, acquired; K44.9 Diaphragmatic hernia without obstruction or gangrene; J92.9 Pleural plaque without asbestos; Z87.442 Personal history of urinary calculi; Z98.890 Other specified postprocedural states
CPT/HCPCS: 74177; 74178; 82565; Q9967

== ENCOUNTER 2024-07-26 10:29 | Inpatient (IN) | payer MEDICARE ==
[2024-07-26 10:43] LABS: Actual Bicarbonate (HCO3v) 21.1 mEq/L (22-28); Analyzer IN Cardio ER; Base Excess -7.1 mEq/L (-2.0 to +3.0); Calcium, Ionized (venous) 1.13 mmol/L (1.16-1.32); Chloride (VBG) 107 mmol/L (98-106); Hematocrit-VBG 43 % (42.0-52.0); Hemoglobin (Hb) 14.7 g/dL (12.6-17.4); Potassium (VBG) 3.51 mmol/L (3.70-5.30); Sodium 147 mmol/L (133-146); pH (venous) 7.219 (7.32-7.43)
[2024-07-26 10:49] LABS: #Basophils 0.04 10x3/uL (0.0-0.2); %Basophils 0.4 % (0.0-1.0); %Eosinophils 2.1 % (0.0-10.0); %Lymphocytes 37.9 % (21.0-51.0); %Monocytes 7.4 % (0.0-10.0); %Neutrophils 51.7 % (42.0-75.0); Hematocrit 41.6 % (42.0-52.0); Hemoglobin 13.3 g/dL (14.0-18.0); Mean Corpuscular Hemoglobin 28.6 pg (27.0-31.0); Mean Corpuscular Volume 89.5 fL (78.0-98.0); Mean Platelet Volume 11.2 fL (7.4-10.4); Platelet Count 163 10x3/uL (130-400); RBC Distribution Width 13.3 % (11.5-14.5); Red Blood Cell (RBC) Count 4.65 mill/uL (4.70-6.10)
[2024-07-26 11:11] LABS: ALT (SGPT) 8 U/L (8-55); AST (SGOT) 10 U/L (5-34); Albumin 3.7 g/dL (3.4-4.8); Alkaline Phosphatase 73 U/L (40-110); Anion Gap 20 mmol/L (10-20); BUN (Urea Nitrogen) 19 mg/dL (8.4-25.7); Bilirubin, Total 0.9 mg/dL (0.2-1.2); Calc. Creatinine Clearance 0 mL/min (70-130); Calcium 8.7 mg/dL (7.8-10.44); Carbon Dioxide 19 mmol/L (23-31); Chloride 109 mmol/L (98-107); Estimated GFR 59; Globulin 2.7 g/dL (2.4-3.5); Glucose 214 mg/dL (83-110); Potassium 3.3 mmol/L (3.5-5.1); Protein, Total 6.4 g/dL (5.8-8.1); Sodium 145 mmol/L (136-145)
[2024-07-26 11:17] LABS: Troponin I 0.071 ng/mL (< 0.028)
[2024-07-26] MEDS ORDERED: Ondansetron PF 4 MG/2 ML Vial IVP PRN (11:48)
[2024-07-26] MEDS ORDERED: Acetaminophen 325 MG TAB PO PRN (11:48)
[2024-07-26] MEDS ORDERED: traMADol HCl 50 MG TAB PO PRN (11:51)
[2024-07-26] MEDS ORDERED: Furosemide 40 MG (4 mL) VIAL ONE (13:23)
[2024-07-26] MEDS: Furosemide 40 MG (4 mL) VIAL SLOW IVP SCH (13:32)
[2024-07-26 14:02] LABS: Lactic Acid 1.85 mmol/L (0.5-2.2)
[2024-07-26] MEDS ORDERED: Insulin Lispro 100 UNIT/ML 10 ML VIAL SC PRN (14:17)
[2024-07-26] MEDS ORDERED: Dextrose 50% Abboject 50 ML SYRINGE SLOW IVP PRN (14:17)
[2024-07-26] MEDS ORDERED: Glucagon 1 MG/ML KIT IM PRN (14:17)
[2024-07-26] MEDS ORDERED: Dextrose 5% in Water 1,000 ML IV PRN (14:17)
[2024-07-26 14:51] LABS: Magnesium 2.2 mg/dL (1.6-2.6)
[2024-07-26 18:44] VITALS: BMI 24.5
[2024-07-26] MEDS ORDERED: Apixaban 5 MG TAB PO SCH (21:00)
[2024-07-26 21:42] VITALS: BP 124/67; TEMP 98.1
[2024-07-26] MEDS: Potassium Chloride 20 MEQ TAB PO SCH (21:42)
[2024-07-26] MEDS: Lisinopril 10 MG TAB PO SCH (21:43)
[2024-07-26] MEDS: Mycophenolate 250 MG CAP PO SCH (21:43)
[2024-07-27] MEDS ORDERED: predniSONE 5 MG TAB PO SCH (09:00)
[2024-07-27] MEDS ORDERED: Empagliflozin 10 MG TAB PO SCH (09:00)
[2024-07-27] MEDS ORDERED: Non-Formulary Item 1 EACH (Pravastatin Sodium [Pravastatin Sodium] 80 MG Tablet) PO SCH (09:00)
[2024-07-27] MEDS ORDERED: Aspirin 81 mg Enteric Coated Tablet PO SCH (09:00)
[2024-07-27] MEDS ORDERED: Tacrolimus 0.5 MG CAP PO SCH (09:00)
[2024-07-27] MEDS ORDERED: PRAVASTATIN SODIUM 80 MG PO SCH (09:00)
[2024-07-27] MEDS ORDERED: Sodium Bicarbonate Tab 325 MG TAB ONE (20:47)
[2024-07-28] MEDS ORDERED: Sodium Bicarbonate Tab 325 MG TAB ONE (08:56)
[2024-07-29 09:45] LABS: Anion Gap 17 mmol/L (10-20); BUN (Urea Nitrogen) 45 mg/dL (8.4-25.7); Calc. Creatinine Clearance 46 mL/min (70-130); Calcium 8.9 mg/dL (7.8-10.44); Carbon Dioxide 22 mmol/L (23-31); Chloride 106 mmol/L (98-107); Estimated GFR 48; Glucose 151 mg/dL (83-110); Magnesium 2.5 mg/dL (1.6-2.6); Potassium 3.9 mmol/L (3.5-5.1); Sodium 141 mmol/L (136-145)
[2024-07-29 09:47] LABS: Lactic Acid 1.31 mmol/L (0.5-2.2)
[2024-07-29 19:22] LABS: #Basophils Less than 0.03 10x3/uL (0.0-0.2); #Eosinophils Less than 0.03 10x3/uL (0.0-0.7); %Eosinophils 0.1 % (0.0-10.0); %Lymphocytes 11.3 % (21.0-51.0); %Monocytes 9.2 % (0.0-10.0); %Neutrophils 78.9 % (42.0-75.0); Hemoglobin 11.7 g/dL (14.0-18.0); Mean Corpuscular HGB CONC 32.5 g/dL (32.0-36.0); Mean Corpuscular Hemoglobin 28.1 pg (27.0-31.0); Mean Corpuscular Volume 86.5 fL (78.0-98.0); Mean Platelet Volume 11.7 fL (7.4-10.4); Platelet Count 148 10x3/uL (130-400); RBC Distribution Width 13.5 % (11.5-14.5); Red Blood Cell (RBC) Count 4.16 mill/uL (4.70-6.10)
== END 2024-07-28 13:05 | disposition home or self-care (01) | DRG 280 ==
LOC: SUATTDRO 10:29 → ERS 10:29 → ERHOLD 11:55 → 2NO 17:44
PROVIDERS: ADMIT Internal Medicine; ATTEND Internal Medicine
PROC: 5A09357 Assistance with Respiratory Ventilation, Less than 24 Consecutive Hours, Continuous Positive Airway Pressure (ICD-10-PCS; principal; 2024-07-26)
DX: I13.0 Hypertensive heart and chronic kidney disease with heart failure and stage 1 through stage 4 chronic kidney disease, or unspecified chronic kidney disease (principal); E11.10 Type 2 diabetes mellitus with ketoacidosis without coma; I21.A1 Myocardial infarction type 2; I50.23 Acute on chronic systolic (congestive) heart failure; J96.01 Acute respiratory failure with hypoxia; J96.02 Acute respiratory failure with hypercapnia; Z94.0 Kidney transplant status; N17.9 Acute kidney failure, unspecified; I25.10 Atherosclerotic heart disease of native coronary artery without angina pectoris; E78.5 Hyperlipidemia, unspecified; Z88.8 Allergy status to other drugs, medicaments and biological substances; N18.30 Chronic kidney disease, stage 3 unspecified; E87.6 Hypokalemia; I35.0 Nonrheumatic aortic (valve) stenosis; D63.1 Anemia in chronic kidney disease
CPT/HCPCS: 36415; 36416; 71045; 80048; 80053; 82010; 82805; 83605; 83735; 83880; 84484; 85025; 93005; 93306; 94660; J1940

== ENCOUNTER 2024-07-28 23:19 | Emergency (ER) | payer MEDICARE ==
[2024-07-28] MEDS ORDERED: Nitroglycerin 2% Ointment 1 INCH/1 GM Packet ONE (23:35)
[2024-07-28] MEDS ORDERED: Furosemide 20 MG (2 mL) VIAL ONE (23:41)
[2024-07-28 23:58] LABS: #Basophils 0.03 10x3/uL (0.0-0.2); %Basophils 0.2 % (0.0-1.0); %Eosinophils 0.2 % (0.0-10.0); %Lymphocytes 10.7 % (21.0-51.0); %Monocytes 5.8 % (0.0-10.0); %Neutrophils 82.2 % (42.0-75.0); Hematocrit 43.8 % (42.0-52.0); Hemoglobin 13.7 g/dL (14.0-18.0); Mean Corpuscular HGB CONC 31.3 g/dL (32.0-36.0); Mean Corpuscular Hemoglobin 28.1 pg (27.0-31.0); Mean Corpuscular Volume 89.9 fL (78.0-98.0); Mean Platelet Volume 11.4 fL (7.4-10.4); Platelet Count 169 10x3/uL (130-400); RBC Distribution Width 13.4 % (11.5-14.5); Red Blood Cell (RBC) Count 4.87 mill/uL (4.70-6.10)
[2024-07-29 00:09] LABS: INR-International Normal Ratio 1.3; Prothrombin Time 15.8 sec (12.0-14.7)
[2024-07-29 00:10] LABS: PTT 24.1 sec (22.9-36.1)
[2024-07-29 00:17] LABS: Actual Bicarbonate (HCO3a) 19.1 mEq/L (22-28); Base Excess (BEa) -3.9 mEq/L (-2.0 to +3.0); CO2 Tension 29.4 mmHg (35.0-45.0); Carboxyhemoglobin (COHb) 0.6 gm% (0.0-3.0); Hematocrit-ABG 41 % (42.0-52.0); Hemoglobin (Hb) 13.8 g/dL (14.0-18.0); O2 Tension (PaO2), arterial 103.8 mmHg (> 70.0); pH, Arterial 7.431 (7.35-7.45)
[2024-07-29 00:18] LABS: Analyzer IN Cardio ER; Calcium, Ionized (arterial) 1.14 mmol/L (1.12-1.30); Potassium - ABG Lab 3.27 mmol/L (3.70-5.30)
[2024-07-29 00:21] LABS: ALT (SGPT) 12 U/L (8-55); AST (SGOT) 17 U/L (5-34); Albumin 4.1 g/dL (3.4-4.8); Alkaline Phosphatase 78 U/L (40-110); Anion Gap 28 mmol/L (10-20); BUN (Urea Nitrogen) 48 mg/dL (8.4-25.7); Bilirubin, Total 1.1 mg/dL (0.2-1.2); Calc. Creatinine Clearance 0 mL/min (70-130); Calcium 9.5 mg/dL (7.8-10.44); Carbon Dioxide 15 mmol/L (23-31); Chloride 102 mmol/L (98-107); Estimated GFR 34; Globulin 2.8 g/dL (2.4-3.5); Glucose 328 mg/dL (83-110); Protein, Total 6.9 g/dL (5.8-8.1); Sodium 141 mmol/L (136-145)
[2024-07-29 01:40] LABS: #Eosinophils 0.01 10x3/uL (0.0-0.7); #Monocytes 0.88 10x3/uL (0.11-0.59); #Neutrophils 7.54 10x3/uL (1.40-6.50); %Eosinophils 0.1 % (0.0-10.0); %Lymphocytes 11.3 % (21.0-51.0); %Monocytes 9.2 % (0.0-10.0); %Neutrophils 78.9 % (42.0-75.0); Hemoglobin 11.7 g/dL (14.0-18.0); Mean Corpuscular HGB CONC 32.5 g/dL (32.0-36.0); Mean Corpuscular Hemoglobin 28.1 pg (27.0-31.0); Mean Corpuscular Volume 86.5 fL (78.0-98.0); Mean Platelet Volume 11.7 fL (7.4-10.4); Platelet Count 148 10x3/uL (130-400); RBC Distribution Width 13.5 % (11.5-14.5); Red Blood Cell (RBC) Count 4.16 mill/uL (4.70-6.10); White Blood Cell (WBC) Count 9.56 10x3/uL (4.8-10.8)
[2024-07-29 03:54] LABS: Lactic Acid 4.02 mmol/L (0.5-2.2)
== END 2024-07-29 04:52 | disposition short-term general hospital (02) ==
LOC: ERS 23:19
DX: I13.2 Hypertensive heart and chronic kidney disease with heart failure and with stage 5 chronic kidney disease, or end stage renal disease (principal); E11.22 Type 2 diabetes mellitus with diabetic chronic kidney disease; N18.6 End stage renal disease; I50.9 Heart failure, unspecified; J96.91 Respiratory failure, unspecified with hypoxia; I25.10 Atherosclerotic heart disease of native coronary artery without angina pectoris; E78.5 Hyperlipidemia, unspecified; Z79.84 Long term (current) use of oral hypoglycemic drugs; Z79.82 Long term (current) use of aspirin; Z79.899 Other long term (current) drug therapy
CPT/HCPCS: 71045; 80053; 82805; 82962; 83605; 83880; 84484; 85025; 85610; 85730; 93005; 94660; 96374; 99285; J1940; 36415; 36416